=== PATIENT | female | born 1970 | race Caucasian/White ===

== ENCOUNTER 2019-02-01 07:52 | Day surgery (SDC) | payer OTHER ==
[2019-02-01] MEDS ORDERED: MEPERIDINE 25 MG INJ IV (10:00)
[2019-02-01] MEDS ORDERED: DIPHENHYDRAMINE 50 MG INJ IV (10:00)
[2019-02-01] MEDS ORDERED: OXYCODONE/ACETAMINOPHEN (5/325) TAB PO (10:00)
[2019-02-01] MEDS ORDERED: EPHEDrine 25 MG/5 ML SYG IV (10:00)
[2019-02-01] MEDS ORDERED: METOCLOPRAMIDE 10 MG INJ IV (10:00)
[2019-02-01] MEDS ORDERED: FENTAnyl 50 MCG/ML VIAL IV ×2 (10:00)
[2019-02-01] MEDS ORDERED: HYDROmorphONE 1 MG/5 ML IV SYRINGE IV (10:00)
[2019-02-01] MEDS ORDERED: ONDANSETRON 4 MG INJ IV (10:00)
[2019-02-01] MEDS ORDERED: LABETALOL HCL 20MG INJ IV (10:00)
[2019-02-01] MEDS ORDERED: PROPOFOL 20 ML (10:02)
[2019-02-01] MEDS ORDERED: ROCURONIUM 50 MG INJ (10:02)
[2019-02-01] MEDS ORDERED: CEFAZOLIN 1 GM INJ (10:02)
[2019-02-01] MEDS ORDERED: FENTAnyl 50 MCG/ML VIAL (10:03)
[2019-02-01] MEDS ORDERED: MIDAZOLAM 1 MG/ML 2 ML INJ (10:03)
[2019-02-01] MEDS ORDERED: METOCLOPRAMIDE 10 MG INJ (10:47)
[2019-02-01] MEDS ORDERED: ONDANSETRON 4 MG INJ (10:47)
[2019-02-01] MEDS ORDERED: DEXAMETHASONE 4 MG/ML 5 ML INJ (10:47)
[2019-02-01] MEDS ORDERED: KETOROLAC 30 MG INJ (10:47)
[2019-02-01] MEDS ORDERED: GLYCOPYRROLATE 0.4 MG INJ (10:51)
[2019-02-01] MEDS ORDERED: NEOSTIGMINE 3 MG/3 ML SYRINGE (10:51)
[2019-02-01] MEDS: EPINEPHrine 1 MG/ML 30 ML INJ (11:06)
[2019-02-01] MEDS: ROPIVACAINE 0.5 % 30 ML VIAL (11:07)
[2019-02-01] MEDS ORDERED: HYDROCODONE/APAP (5/325) TAB PO ×2 (11:30)
[2019-02-01] MEDS ORDERED: morphine 2 MG INJ IV (11:30)
[2019-02-01] MEDS: HYDROmorphONE 1 MG/5 ML IV SYRINGE IV (11:43)
== END 2019-02-01 13:39 | disposition home or self-care (01) ==
LOC: SDS 07:52
DX: M23.221 Derangement of posterior horn of medial meniscus due to old tear or injury, right knee (principal); E11.9 Type 2 diabetes mellitus without complications
CPT/HCPCS: 29881; 82962; 84703